=== PATIENT | male | born 1965 | race Caucasian/White ===

== ENCOUNTER 2016-12-21 17:04 | Emergency (ER) | payer OTHER ==
[~2016-12-21] VITALS: Ht 170.2 cm; Wt 87.2 kg
[2016-12-21 17:06] VITALS: TEMP 36.9; Ht 170.2 cm; Wt 87.2 kg
--- NOTE | 2016-12-21 17:23 | EMERGENCY ROOM VISIT NOTE ---
History Report prepared by Magda: Bakari León Under the Supervision of: Dr. Mamadou Haro M.D. First contact with patient: 17:11 Chief Complaint: ABDOMINAL PAIN Stated Complaint: ABD PAIN Nursing Triage Summary: PT STATES HE HAS HAD ABDOMINAL PAIN FOR THE LAST 4-5 WEEKS PT STATES HE WANTS EVALUATED PAIN IS MORE CONSTANT AND NOT GOING AWAY STATES THE PAIN IS LOWER ABDOMEN HAS HAD SOME NAUSEA NO VOMITING OR DIARRHEA History of Present Illness The patient is a 51 year old male who presents to the Emergency Room with complaints of persistent lower abdominal pain for the past five weeks. The pain was initially sharp but is now more dull. The pain is more localized to the right side. The patient also complains of intermittent dizziness and nausea. The patient denies fevers, headache, neck pain, chest pain, shortness of breath , vomiting, abnormal back pain, hematuria,or testicular swelling. The patient had loose stools during the first week of his abdominal pain. 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 He has never heard surgery of the abdomen. The patient also notes that for the past several years he has intermittently experienced sharp rectal pain. He has a history of kidney stones , which felt different than his current pain. Source of History: patient, family Onset: five weeks Position: abdomen (lower) Quality: dull Timing: other (persistent) Associated Symptoms: + nausea, No SOB, No back pain, No chest pain, No fevers, No headache, No neck pain, No urinary symptoms, No vomiting Review of Systems See HPI for pertinent positives & negatives. A total of 10 systems reviewed and were otherwise negative. Past Medical & Surgical Medical Problems: (1) Kidney stone Old medical records were reviewed. Nurse's notes were reviewed and I agree with. Family History Diabetes mellitus FH: heart disease FH: lung disease FHx: cancer FHx: gallbladder disease Hypertension Kidney disease Social History Smoking Status: Never Smoker Drug Use: none Occupation Status: employed Current/Historical Medications No Active Prescriptions or Reported Meds Allergies Coded Allergies: No Known Allergies (Unverified , 12/21/16) Physical Exam Vital Signs Date Time Temp Pulse Resp B/P Pulse Ox O2 Delivery O2 Flow Rate FiO2 12/21/16 19:40 76 18 140/86 97 12/21/16 18:57 87 18 156/97 99 Room Air 12/21/16 17:06 36.9 82 20 147/90 98 Room Air Physical Exam General: Non ill-appearing middle aged male, no acute distress. HEENT: Normal cephalic atraumatic. Pupils are equal round and reactive to light. Extraocular movements are intact. Oropharynx is pink with moist mucous membranes. No swelling of the mouth lips or tongue. Neck: Supple with a midline trachea. No meningeal signs or stiffness, no JVD or bruits. No Stridor. Chest: Clear to auscultation bilaterally. No wheezes or rhonchi. No increased work of breathing. Heart: regular rate and rhythm. Abdomen: Tender in the right lower quadrant without rebound guarding or rigidity , no masses. : Normal exam. No evidence of testicular torsion or hernia. Extremities: No cyanosis clubbing or edema. No calf tenderness or assymetry Spine/Back. Non tender to palpation. No CVA tenderness Skin: Good turgor without rashes. Neurologic exam: Cranial nerves two through 12 are intact. Motor and sensation are intact and symmetrical throughout. Medical Decision & Procedures ER Provider Diagnostic Interpretation: CT results as stated below per my review and radiologist interpretation: ABDOMEN AND PELVIS CT WITH IV CONTRAST CT DOSE: 545.40 mGy.cm HISTORY: Right lower quadrant abdominal pain. TECHNIQUE: Multiaxial CT images of the abdomen and pelvis were performed following the use of intravenous contrast. COMPARISON STUDY: None. FINDINGS: The lung bases are clear. Mild hepatic steatosis. A 2.9 cm hypodense area within the right hepatic lobe appears to demonstrate discontinuous peripheral nodular enhancement. Although technically indeterminate on this study this favors a hemangioma. A 7 mm hypodense lesion within the left kidney is too small to characterize. Normal right kidney. No hydronephrosis. The spleen, gallbladder, pancreas, kidneys, and adrenal glands are within normal limits. No bowel wall thickening or obstruction. The pelvic organs are unremarkable. No suspicious lytic or blastic osseous lesions. Normal appendix. IMPRESSION: 1. Normal appendix. 2. No bowel wall thickening or obstruction. 3. A 2.9 cm hypodense area within the right hepatic lobe appears to demonstrate discontinuous peripheral nodular enhancement. Although technically indeterminate on this study this favors a hemangioma. Electronically signed by: Jaycob Triana M.D. 12/21/2016 7:11 PM Dictated Date/Time: 12/21/2016 7:03 PM Laboratory Results 12/21/16 17:49 Red Blood Count 5.48, Mean Corpuscular Volume 84.3, Mean Corpuscular Hemoglobin 29.7, Mean Corpuscular Hemoglobin Concent 35.3, Mean Platelet Volume 8.8, Neutrophils (%) (Auto) 60.8, Lymphocytes (%) (Auto) 29.8, Monocytes (%) (Auto) 8.7, Eosinophils (%) (Auto) 0.4, Basophils (%) (Auto) 0.1, Neutrophils # (Auto) 5.09, Lymphocytes # (Auto) 2.50, Monocytes # (Auto) 0.73, Eosinophils # (Auto) 0.03, Basophils # (Auto) 0.01 12/21/16 17:49 Test 12/21/16 17:49 White Blood Count 8.38 K/uL (4.8-10.8) Red Blood Count 5.48 M/uL (4.7-6.1) Hemoglobin 16.3 g/dL (14.0-18.0) Hematocrit 46.2 % (42-52) Mean Corpuscular Volume 84.3 fL (80-100) Mean Corpuscular Hemoglobin 29.7 pg (25-34) Mean Corpuscular Hemoglobin Concent 35.3 g/dl (32-36) Platelet Count 254 K/uL (130-400) Mean Platelet Volume 8.8 fL (7.4-10.4) Neutrophils (%) (Auto) 60.8 % Lymphocytes (%) (Auto) 29.8 % Monocytes (%) (Auto) 8.7 % Eosinophils (%) (Auto) 0.4 % Basophils (%) (Auto) 0.1 % Neutrophils # (Auto) 5.09 K/uL (1.4-6.5) Lymphocytes # (Auto) 2.50 K/uL (1.2-3.4) Monocytes # (Auto) 0.73 K/uL (0.11-0.59) Eosinophils # (Auto) 0.03 K/uL (0-0.5) Basophils # (Auto) 0.01 K/uL (0-0.2) RDW Standard Deviation 38.3 fL (36.4-46.3) RDW Coefficient of Variation 12.6 % (11.5-14.5) Immature Granulocyte % (Auto) 0.2 % Immature Granulocyte # (Auto) 0.02 K/uL (0.00-0.02) Urine Color YELLOW Urine Appearance CLEAR (CLEAR) Urine pH 5.0 (4.5-7.5) Urine Specific [place] 1.004 (1.000-1.030) Urine Protein NEG (NEG) Urine Glucose (UA) NEG (NEG) Urine Ketones NEG (NEG) Urine Occult Blood NEG (NEG) Urine Nitrite NEG (NEG) Urine Bilirubin NEG (NEG) Urine Urobilinogen NEG (NEG) Urine Leukocyte Esterase NEG (NEG) Anion Gap 10.0 mmol/L (3-11) Est Creatinine Clear Calc Drug Dose 76.8 ml/min Estimated GFR () 80.7 Estimated GFR (Non- 69.6 BUN/Creatinine Ratio 18.8 (10-20) Calcium Level 9.2 mg/dl (8.5-10.1) Total Bilirubin 0.9 mg/dl (0.2-1) Direct Bilirubin 0.2 mg/dl (0-0.2) Aspartate Amino Transf (AST/SGOT) 16 U/L (15-37) Alanine Aminotransferase (ALT/SGPT) 33 U/L (12-78) Alkaline Phosphatase 68 U/L (45-117) Total Protein 7.9 gm/dl (6.4-8.2) Albumin 4.2 gm/dl (3.4-5.0) Lipase 165 U/L (73-393) Laboratory studies as stated above per my review. Medications Administered Medications (Trade) Dose Ordered Sig/Flakito Route Start Time Stop Time Status Last Admin Dose Admin Sodium Chloride 1,000 ml @ 999 mls/hr Q1H1M STAT IV 12/21/16 17:26 12/21/16 18:26 DC 12/21/16 17:57 999 MLS/HR Sodium Chloride (Nss 1000ml) 1,000 ml @ 150 mls/hr Q6H40M ONCE IV 12/21/16 17:26 12/21/16 19:57 DC 12/21/16 18:24 150 MLS/HR ED Course 1715: Past medical records reviewed. The patient was evaluated in room C11b, and a complete history and physical examination were performed. 1726: NSS 1000 ml @ 150 mls/hr, NSS 1000 ml @ 999 mls/hr. 1840: Checked on the patient. He is comfortable and waiting to go over to CT scan. 1920: Reassessed the patient. He was resting comfortably. He verbalized understanding and agreement of the treatment plan. The patient is ready for discharge. Medical Decision Differential diagnosis includes appendicitis, diverticulitis, musculoskeletal pain, kidney stone, UTI, electrolyte or metabolic abnormality. This patient comes in as described above. He was placed in room C11. He has been having abdominal pain lower abdomen mostly on the right for several weeks now. He looks well on exam. No fever. Abdomen is mildly tender. No peritonitis. IV access was established and blood work obtained. He was hydrated with IV normal saline. He declines pain medicine initially. He has no white count or fever to suggest infection. Her urinalysis was unremarkable and does not suggest kidney stone or infection. A CAT scan was obtained. It was unremarkable. He is no evidence of bowel obstruction he does have an incidental liver lesion which is likely hemangioma. I recommend that he a follow-up with his regular doctor for this as well as further investigation of his abdominal pain. Apparently, he does have irritable bowel syndrome and could be related this or musculoskeletal . at this point he has evidence of acute surgical or infectious process. The patient was encouraged use ibuprofen or NSAID if needed return to ER if: increasing pain, fever or chills, worsening ofsystems, any new problems or concerns. The patient was happy with the plan as was his sister and he was discharged home and have close follow-up with his medical provider. Impression Primary Impression: RLQ abdominal pain Scribe Attestation The scribe's documentation has been prepared under my direction and personally reviewed by me in its entirety. I confirm that the note above accurately reflects all work, treatment, procedures, and medical decision making performed by me. Departure Information Dispostion Home / Self-Care Prescriptions No Active Prescriptions or Reported Meds Referrals Barbie Calderon MD (PCP) Forms Call Back Authorization, HOME CARE DOCUMENTATION FORM, IMPORTANT VISIT INFORMATION Patient Instructions [facility] Additional Instructions Rest. Drink plenty of fluids. May use ibuprofen 400 mg every 6 hours if needed your take with food. Return if: Increasing pain, worsening of symptoms, fever or chills, any new problems or concerns. Follow-up with your doctor this week for recheck
[2016-12-21] MEDS ORDERED: SODIUM CHLORIDE 0.9% 1000ML 1,000 ML IV ONE (17:26)
[2016-12-21] MEDS ORDERED: SODIUM CHLORIDE 0.9% 1000ML 1,000 ML IV STA (17:26)
[2016-12-21] MEDS ORDERED: OPTIRAY 320 IV PRN (17:45)
[2016-12-21 18:03] LABS: BASO % 0.1 %; BASO ABS # 0.01 K/uL (0-0.2); COMPLETE YES; EOS % 0.4 %; HEMATOCRIT 46.2 % (42-52); IG% 0.2 %; LYMPH % 29.8 %; MEAN CELL VOLUME 84.3 fL (80-100); MEAN CORPUSCULAR HEMOGLOBIN 29.7 pg (25-34); MEAN CORPUSCULAR HGB CONC 35.3 g/dl (32-36); MEAN PLATELET VOLUME 8.8 fL (7.4-10.4); MONO % 8.7 %; NEUT % 60.8 %; PLATELET COUNT 254 K/uL (130-400); RED BLOOD COUNT 5.48 M/uL (4.7-6.1); WHITE BLOOD COUNT 8.38 K/uL (4.8-10.8)
[2016-12-21 18:09] LABS: URINE APPEARANCE CLEAR (CLEAR); URINE BILIRUBIN NEG (NEG); URINE COLOR YELLOW; URINE NITRITE NEG (NEG); URINE SPECIFIC GRAVITY 1.004 (1.000-1.030); UROBILINOGEN NEG (NEG)
[2016-12-21 18:17] LABS: MANUAL MICROSCOPIC REQUIRED? NO; REVIEW REQ? NO
[2016-12-21 18:32] LABS: BUN/CREATININE RATIO 18.8 (10-20); CALCIUM 9.2 mg/dl (8.5-10.1); CREATININE 1.2 mg/dl (0.60-1.40); POTASSIUM 3.8 mmol/L (3.5-5.1)
--- NOTE | 2016-12-21 19:13 | DIAGNOSTIC IMAGING REPORT ---
ABDOMEN AND PELVIS CT WITH IV CONTRAST CT DOSE: 545.40 mGy.cm HISTORY: Right lower quadrant abdominal pain. TECHNIQUE: Multiaxial CT images of the abdomen and pelvis were performed following the use of intravenous contrast. COMPARISON STUDY: None. FINDINGS: The lung bases are clear. Mild hepatic steatosis. A 2.9 cm hypodense area within the right hepatic lobe appears to demonstrate discontinuous peripheral nodular enhancement. Although technically indeterminate on this study this favors a hemangioma. A 7 mm hypodense lesion within the left kidney is too small to characterize. Normal right kidney. No hydronephrosis. The spleen, gallbladder, pancreas, kidneys, and adrenal glands are within normal limits. No bowel wall thickening or obstruction. The pelvic organs are unremarkable. No suspicious lytic or blastic osseous lesions. Normal appendix. IMPRESSION: 1. Normal appendix. 2. No bowel wall thickening or obstruction. 3. A 2.9 cm hypodense area within the right hepatic lobe appears to demonstrate discontinuous peripheral nodular enhancement. Although technically indeterminate on this study this favors a hemangioma. Electronically signed by: Jaycob Triana M.D. 12/21/2016 7:11 PM Dictated Date/Time: 12/21/2016 7:03 PM
[2016-12-21 19:40] VITALS: BP 140/86; PULSE 76; O2SAT 97
[2017-02-20] MEDS ORDERED: IPRA0.06 NAE (12:44)
== END 2016-12-21 19:40 | disposition home or self-care (01) ==
LOC: C.EDB 17:06 → C.EDC 19:40
DX: R10.31 Right lower quadrant pain (principal)

== ENCOUNTER → 2017-01-09 | Outpatient (CLI) | payer OTHER ==
[~2017-01-09] MED LIST: IPRA0.06 NAE
[2017-01-09 10:52] LABS: BASO % 0.2 %; BASO ABS # 0.01 K/uL (0-0.2); COMPLETE YES; EOS % 1.3 %; IG% 0.2 %; LYMPH % 35.9 %; LYMPH ABS # 1.95 K/uL (1.2-3.4); MEAN CELL VOLUME 87.2 fL (80-100); MEAN CORPUSCULAR HEMOGLOBIN 29.3 pg (25-34); MEAN CORPUSCULAR HGB CONC 33.6 g/dl (32-36); MEAN PLATELET VOLUME 9.5 fL (7.4-10.4); MONO % 9.8 %; NEUT % 52.6 %; PLATELET COUNT 257 K/uL (130-400); RED BLOOD COUNT 5.39 M/uL (4.7-6.1); WHITE BLOOD COUNT 5.43 K/uL (4.8-10.8)
[2017-01-09 11:21] LABS: ALT/SGPT 30 U/L (12-78); BLOOD UREA NITROGEN 21 mg/dl (7-18); BUN/CREATININE RATIO 21.3 (10-20); CARBON DIOXIDE 26 mmol/L (21-32); CHLORIDE 107 mmol/L (98-107); CHOLESTEROL 191 mg/dl (0-200); GLUCOSE 115 mg/dl (70-99); POTASSIUM 3.8 mmol/L (3.5-5.1); SODIUM 142 mmol/L (136-145); TRIGLYCERIDES 111 mg/dl (0-150); VERY LOW DENSITY LIPOPROT CALC 22 mg/dl
[2017-01-09 11:24] LABS: ALB/GLOB RATIO 1.1 (0.9-2); ALKALINE PHOSPHATASE 63 U/L (45-117); AST/SGOT 16 U/L (15-37); CHOLESTEROL/HDL RATIO 4.1; HDL CHOLESTEROL 47 mg/dl; LDL CHOLESTEROL CALCULATED 122 mg/dl
== END | disposition home or self-care (01) ==
LOC: C.LABBC 08:01
PROVIDERS: ATTEND Nurse Practitioner Family
DX: J32.9 Chronic sinusitis, unspecified (principal); R42 Dizziness and giddiness; Z11.59 Encounter for screening for other viral diseases; Z13.6 Encounter for screening for cardiovascular disorders; Z13.1 Encounter for screening for diabetes mellitus

== ENCOUNTER → 2017-01-15 | Outpatient (CLI) | payer OTHER ==
[2017-01-15 15:42] LABS: LYME DISEASE AB IGG NEG (NEG); LYME DISEASE AB IGM NEG (NEG)
== END | disposition home or self-care (01) ==
LOC: C.LABBC 10:36
PROVIDERS: ATTEND Family Medicine
DX: R51 Headache (principal); R42 Dizziness and giddiness

== ENCOUNTER → 2017-01-15 | Outpatient (CLI) | payer OTHER ==
--- NOTE | 2017-01-15 07:32 | DIAGNOSTIC IMAGING REPORT ---
Brain MRI WITHOUT CONTRAST HISTORY: Mental status change R42 [id number] New onset of headaches after age TECHNIQUE: Multiplanar multisequence MRI of the brain was performed without the use of contrast. COMPARISON STUDY: None. FINDINGS: There are no areas of restricted diffusion to suggest acute infarction. The midline structures are intact. The paranasal sinuses are clear. The mastoid air cells are clear. The ventricles and sulci are within normal limits for age. There is no mass, hematoma, midline shift. The major vascular flow-voids at the skull base are well maintained. IMPRESSION: No acute intracranial abnormality. Electronically signed by: Wilfredo Bob M.D. 01/15/2017 7:31 AM Dictated Date/Time: 01/15/2017 7:28 AM
== END | disposition home or self-care (01) ==
LOC: C.MRI 05:58
PROVIDERS: ATTEND Psychiatry & Neurology Neurology
DX: R42 Dizziness and giddiness (principal); R51 Headache

== ENCOUNTER → 2017-02-27 | Day surgery (SDC) | payer OTHER ==
[2017-02-20 12:44] VITALS: Ht 170.2 cm; Wt 88.2 kg
[~2017-02-27] VITALS: Ht 170.2 cm; Wt 88.2 kg
[~2017-02-27] MED LIST changes: +LIDOCAINE HCL 2% 2 ML VIAL (20MG/ML) ONE; +MIDAZOLAM HCL 1 MG/ML 2ML VIAL ONE; +ONDANSETRON INJ 2 MG/ML 2 ML VIAL ONE; +PROPOFOL IV EMULSION 10 MG/ML 20 ML VIAL IV ONE; +SODIUM CHLORIDE 0.9% 500ML 500 ML IV ONE
--- NOTE | 2017-02-27 15:59 | Endo History and Physical ---
History & Physical Date of Service: Feb 27, 2017. Chief Complaint: Screening Referring Physician: Fernando MENDEZ History of Present Illness 51 yo CM who presents for screening colonoscopy. Past Surgical History Hx Cardiac Surgery: No Hx Internal Defibrillator: No Hx Pacemaker: No Hx Abdominal Surgery: No Hx of Implantable Prosthesis: No Hx Post-Op Nausea and Vomiting: No Hx Cancer Surgery: No Hx Thoracic Surgery: No Hx Orthopedic: No Hx Urinary Tract Surgery: No Family History Polyp Social History Smoking Status: Never Smoker Hx Substance Use: No Hx Alcohol Use: Yes (OCCASIONAL) Allergies Coded Allergies: No Known Allergies (Verified , 02/27/17) Current Medications Reported Home Medications Medications Dose Route/Sig Max Daily Dose Days Date Category Ipratropium Clifton (Ipratropium Clifton (Nasal)) 0.06 % Spr 2 Sprays RAJENDRA 2-3X/DAY 02/20/17 Reported Vital Signs Weight (Kilograms): 88.18 Height (Feet): 5 Height (Inches): 7 Date Time Temp Pulse Resp B/P Pulse Ox O2 Delivery O2 Flow Rate FiO2 02/27/17 15:12 37 66 20 138/85 97 Room Air Physical Exam General Appearance: WD/WN, no apparent distress Respiratory/Chest: Auscultation: breath sounds normal Cardiovascular: Heart Auscultation: RRR Abdomen: Bowel Sounds: normal Inspection & Palpation: soft, non-distended, no tenderness, guarding & rebound Assessment and Plan Assessment: 51 yo CM who presents for screening colonoscopy. Plan: Proceed with colonoscopy.
--- NOTE | 2017-02-27 16:23 | Discharge Instructions ---
Endoscopy Patient Instructions Date / Procedure(s) Performed Feb 27, 2017. Colonoscopy Allergy Information Coded Allergies: No Known Allergies (Verified , 02/27/17) Discharge Date / Findings Feb 27, 2017. Normal colonoscopy Medication Instructions OK to resume all medications today as prescribed Reported Home Medications Medications Dose Route/Sig Max Daily Dose Days Date Category Ipratropium Jar[place] (Ipratropium Jar[place] (Nasal)) 0.06 % Spr 2 Sprays RAJENDRA 2-3X/DAY 02/20/17 Reported Provider Instructions Activity Restrictions - No exercising or heavy lifting for 24 hours. - Do not drink alcohol the day of the procedure. - Do not drive a car or operate machinery until the day after the procedure. - Do not make any important decisions or sign important papers in 24 hours after the procedure. Following Day: - Return to full activity which may include returning to work/school. Diet Start your diet with liquids and light foods (jello, soup, juice, toast). Then eat your usual diet if not nauseated. Treatment For Common After Affects For mild abdominal pain, bloating, or excessive gas: - Rest - Eat lightly - Lie on right side Follow-Up Information Follow-up with Fernando MENDEZ as scheduled Anesthesia Information What You Should Know You have had a procedure that required some medicine to reduce anxiety and discomfort. This treatment is called moderate sedation. After receiving the treatment, you may be sleepy, but you will be able to breathe on your own. The effects of the treatment may last for several hours. Follow these instructions along with Activity/Diet recommendations noted above: * Do NOT do anything where dizziness or clumsiness would be dangerous. * Rest quietly at home today, then you can be up and about tomorrow. * Have a responsible person stay with you the rest of today. * You may have had an I.V. today. If so, you may take the dressing off later today. Recommendations Call your doctor if: * Trouble breathing * Continuous vomiting for more than 24 hours * Temperature above 101 degrees * Severe abdominal pain or bloating * Pain not relieved by pain medicine ordered * There is increased drainage or redness from any incision * A large amount of rectal bleeding greater than 2-3 tablespoons. (If you had a polyp/s removed or have hemorrhoids, a small amount of blood - from the rectum is to be expected.) * You have any unanswered questions or concerns. IN THE EVENT OF A SERIOUS EMERGENCY, GO TO THE NEAREST EMERGENCY ROOM Your discharge instructions were prepared by provider Joe Donaldson. Patient Instructions Signature Page Vijay Schmidt Patient (or Guardian) Signature/Date: I have read and understand the instructions given to me by my caregivers. Caregiver/RN/Doctor Signature/Date: The above-named patient and/or guardian has received patient instructions on this date. + Original Patient Signature Page (only) stays with chart. Please make copy for patient.
--- NOTE | 2017-02-27 16:40 | Anesthesiology Progress Note ---
Anesthesia Post Op Note Date & Time Feb 27, 2017 at 16:40 Vital Signs Pain Intensity: 0 Vital Signs Past 12 Hours Date Time Temp Pulse Resp B/P Pulse Ox O2 Delivery O2 Flow Rate FiO2 02/27/17 16:24 71 16 119/87 95 Room Air 02/27/17 15:12 37 66 20 138/85 97 Room Air Notes Mental Status: alert / awake / arousable, participated in evaluation Pt Amnestic to Procedure: Yes Nausea / Vomiting: adequately controlled Pain: adequately controlled Airway Patency, RR, SpO2: stable & adequate BP & HR: stable & adequate Hydration State: stable & adequate Anesthetic Complications: no major complications apparent
--- NOTE | 2017-02-27 16:44 | GI REPORT ---
Procedure Date: 02/27/2017 3:49 PM Procedure: Colonoscopy Indications: Screening for colorectal malignant neoplasm Medicines: Monitored Anesthesia Care Complications: No immediate complications. Estimated Blood Loss: Estimated blood loss: none. Procedure: Pre-Anesthesia Assessment: - Prior to the procedure, a History and Physical was performed, and patient medications and allergies were reviewed. The patient's tolerance of previous anesthesia was also reviewed. The risks and benefits of the procedure and the sedation options and risks were discussed with the patient. All questions were answered, and informed consent was obtained. Prior Anticoagulants: The patient has taken no previous anticoagulant or antiplatelet agents. ASA Grade Assessment: II - A patient with mild systemic disease. After reviewing the risks and benefits, the patient was deemed in satisfactory condition to undergo the procedure. After I obtained informed consent, the scope was passed under direct vision. Throughout the procedure, the patient's blood pressure, pulse, and oxygen saturations were monitored continuously. The scope was introduced through the anus and advanced to the terminal ileum. The colonoscopy was performed without difficulty. The patient tolerated the procedure well. The quality of the bowel preparation was good. The terminal ileum, ileocecal valve, appendiceal orifice, and rectum were photographed. Findings: The entire examined colon appeared normal. Impression: - The entire examined colon is normal. - No specimens collected. Recommendation: - Resume previous diet. - Continue present medications. - Repeat colonoscopy in 10 years for surveillance. - Return to primary care physician as previously scheduled. Joe Donaldson DO 02/27/2017 4:42:50 PM This report has been signed electronically. Note Initiated On: 02/27/2017 3:49 PM I attest to the content of the Intraoperative Record and orders documented therein, exceptions below
[2017-02-27 16:59] VITALS: BP 122/79; PULSE 61; O2SAT 96
== END | disposition home or self-care (01) ==
LOC: C.GI 14:54
PROVIDERS: ATTEND Internal Medicine
DX: Z12.11 Encounter for screening for malignant neoplasm of colon (principal); I10 Essential (primary) hypertension; Z83.71 Family history of colonic polyps; Z68.30 Body mass index [BMI] 30.0-30.9, adult

== ENCOUNTER → 2017-07-23 | Outpatient (CLI) | payer OTHER ==
[~2017-07-23] MED LIST changes: -LIDOCAINE HCL 2% 2 ML VIAL (20MG/ML) ONE; -MIDAZOLAM HCL 1 MG/ML 2ML VIAL ONE; -ONDANSETRON INJ 2 MG/ML 2 ML VIAL ONE; +OPTIRAY 320 IV PRN; -PROPOFOL IV EMULSION 10 MG/ML 20 ML VIAL IV ONE; -SODIUM CHLORIDE 0.9% 500ML 500 ML IV ONE
--- NOTE | 2017-07-23 10:22 | DIAGNOSTIC IMAGING REPORT ---
CT SCAN OF THE ABDOMEN COMBO LIVER PROTOCOL CLINICAL HISTORY: Follow-up liver lesion. COMPARISON STUDY: Abdominal CT dated 12/21/2016. TECHNIQUE: Before and following the IV administration of 93 cc of Optiray 320, CT scan of the abdomen is performed from the lung bases to the pelvic inlet utilizing the liver protocol. Images are reviewed in the axial, sagittal, and coronal planes. IV contrast was administered without complication. A dose lowering technique was utilized adhering to the principles of ALARA. CT DOSE: 1582.26 mGycm FINDINGS: Lung bases: The heart is normal in size and without pericardial effusion. The lung bases are clear. There is a tiny hiatal hernia. Liver: The contrast-enhanced liver is mildly enlarged measuring 18.6 cm in length. The liver demonstrates diffusely diminished attenuation consistent with hepatic steatosis. Fatty sparing is seen adjacent to gallbladder fossa. There is no intrahepatic biliary ductal dilatation. There is a 2.9 cm lesion in the right lobe of liver seen on image #115. This demonstrates foci of discontinuous peripheral nodular enhancement and starts to fill in on the portal venous phase images. Although incompletely characterized the enhancement kinetics are typical for a benign hemangioma. No additional hepatic lesions are suggested. Hepatic and portal vasculature: Hepatic arterial anatomy is conventional. The splenic artery is patent. Gallbladder: Unremarkable. Spleen: Normal in size and attenuation. Pancreas: Unremarkable. Adrenal glands: Unremarkable. Kidneys: There are numerous punctate bilateral nonobstructing renal calculi serial the unenhanced series. The contrast enhanced kidneys are normal in size and without hydronephrosis. The kidneys enhance symmetrically. A 9 mm cyst is noted in the left kidney. Abdominal vasculature: The abdominal aorta is normal in course and caliber. Bowel: Visualized portions of the small bowel and colon are normal in course and caliber. Colonic fecal retention is observed. Peritoneum: There is no intraperitoneal free air or abdominal ascites. Lymphadenopathy: None. Skeletal structures: No lytic or blastic lesions are seen. IMPRESSION: 1. Hepatomegaly and hepatic steatosis. 2. Again seen is a 2.9 cm lesion in the right hepatic lobe. The enhancement kinetics are typical for a benign hemangioma. 3. No additional hepatic lesions are identified. 4. There are numerous punctate nonobstructing bilateral renal calculi. Electronically signed by: Henry Sanchez M.D. 07/23/2017 10:20 AM Dictated Date/Time: 07/23/2017 10:11 AM
== END | disposition home or self-care (01) ==
LOC: C.CTS 09:37
PROVIDERS: ATTEND Physician Assistant
DX: R93.2 Abnormal findings on diagnostic imaging of liver and biliary tract (principal)